=== PATIENT | male | born 1985 | race Hispanic/Latino ===

== ENCOUNTER 2024-08-07 12:05 | Emergency (ER) | payer MEDICARE ==
[~2024-08-07] VITALS: Ht 188 cm; Wt 104.3 kg
--- NOTE | 2024-08-07 12:10 | ERN ---
ED Note History of Present Illness Stated Complaint: LEFT FOOT PAIN Chief Complaint: Lower Extremity Pain/Injury Time Seen by MD: 12:05 Dictation: PATIENT IS A 38-YEAR-OLD MALE WHO ARRIVES TO EMERGENCY ROOM VIA EMS WITH COMPLAINTS OF NUMBNESS TINGLING AND PAIN FROM THE LEFT KNEE DOWN TO THE FOOT ONSET 0 200 THIS MORNING. STATES HE CAN NOT WIGGLE HIS TOES HOWEVER HE IS ABLE TO ROTATE HIS LEG. FOOT IS WARM TO TOUCH THERE IS NO ERYTHEMA PULSES ARE DIMINISHED PALPABLE DISTALLY. NO CALF PAIN TENDERNESS. NO SWELLING Allergies: Coded Allergies: No Known Drug Allergies (Unverified Allergy, Unknown, 08/07/24) Past Medical History RN Note Reviewed/Agreed w/PFSH: Yes Review of System Dictation CONSTITUTIONAL: NEGATIVE EXCEPT FOR HPI HEAD/FACE: NEGATIVE EXCEPT FOR HPI EENT: NEGATIVE EXCEPT FOR HPI RESPIRATORY: NEGATIVE EXCEPT FOR HPI GASTROINTESTINAL/ABDOMINAL: NEGATIVE EXCEPT FOR HPI GENITOURINARY: NEGATIVE EXCEPT FOR HPI MUSCULOSKELETAL: NEGATIVE EXCEPT FOR HPI INTEGUMENTARY: NEGATIVE EXCEPT FOR HPI LEFT LEG PAIN FROM KNEE DOWN WITH NUMBNESS TINGLING NEUROLOGICAL/PSYCH: NEGATIVE EXCEPT FOR HPI HEMATOLOGIC/LYMPHATIC: NEGATIVE EXCEPT FOR HPI ALL SYSTEMS NEGATIVE, EXCEPT NOTED ABOVE. 13 POINT REVIEW OF SYSTEMS ASSESSED AND ALL NEGATIVE EXCEPT FOR ABOVE. Initial Vital Sign VS Vital Signs Date Time Temp Pulse Resp B/P (MAP) Pulse Ox O2 Delivery O2 Flow Rate FiO2 08/07/24 12:08 97.9 59 16 148/89 99 Room Air 0 Physical Exam Dictation VITAL SIGNS REVIEWED GENERAL APPEARANCE: ALERT, ORIENTED X 3, NO ACUTE DISTRESS, WELL DEVELOPED, NOURISHED. HEAD AND FACE: NON-TRAUMATIC. EYES: PERRL, PINK CONJUNCTIVAS, EYELID NO TRAUMA, ANTERIOR CHAMBER WITH ARCUS SENILIS. EARS: PINNAS INTACT AND NO SIGNS OF TRAUMA OR ERYTHEMA EAR CANALS CLEAR AND NO DISCHARGE TM NO ERYTHEMA NOSE: NO DISCHARGE, NO BLEEDING. OROPHARYNX: MOUTH NORMAL, TONGUE PINK, PHARYNX CLEAR,NO ERYTHEMA, TONSILS NO EXUDATES, NO ABSCESSES NOTED, MUCOUS MEMBRANE MOIST NECK: SUPPLE, NON-TENDER, NO THYROMEGALY, NO MASSES, NO JVD, NO BRUITS BREAST:DEFERRED CHEST:NO TENDERNESS, NO CREPITUS, NO PARADOXICAL MOVEMENT, NO RETRACTIONS LUNGS:CLEAR, WELL-VENTILATED, SYMMETRIC, NO RALES, NO WHEEZING, NO RHONCHI, NO STRIDOR, GOOD BREATH SOUNDS BILATERALLY HEART: REGULAR RATE, REGULAR RHYTHM, NO MURMUR, NO GALLOPS VASCULAR: NO PERIPHERAL EDEMA, ABDOMEN: SOFT, POSITIVE BOWEL SOUNDS, NONDISTENDED, NO GUARDING, NONTENDER, NO REBOUND, NO MASSES NO HEPATOMEGALY, NO SPLENOMEGALY, NO BIGGS'S SIGN, NO HERNIAS. RECTAL: DEFERRED GENITAL: DEFERRED NEUROLOGICAL: NORMAL SPEECH, MOTOR FUNCTION INTACT, SENSORY FUNCTION INTACT MUSCULOSKELETAL: NECK NONTENDER, FULL RANGE OF MOTION, BACK NONTENDER, FULL RANGE OF MOTION, EXTREMITIES: PAIN TENDERNESS FROM KNEE DOWN LEFT. NO CALF SWELLING OR TEN DERNESS. NO ERYTHEMA AND SKIN IS INTACT. SKIN: COLOR PINK, DRY, NO TURGOR, NO RASH, NO LACERATIONS, NO ABRASIONS, NO CONTUSIONS. LYMPHATIC: DEFERRED Results (Laboratory/Radiology) Laboratory/Radiology Laboratory Tests Test 08/07/24 12:15 White Blood Count 9.4 K/uL (4.8-10.8) Red Blood Count 4.76 MIL/uL (4.50-6.20) Hemoglobin 14.1 g/dL (14.0-18.0) Hematocrit 41.2 % (42-54) L Mean Corpuscular Volume 86.6 fL (79-99) Mean Corpuscular Hemoglobin 29.6 pg (27.0-33.0) Mean Corpuscular Hemoglobin Concent 34.2 g/dL (32.0-36.0) Red Cell Distribution Width 13.1 % (11.0-15.5) Platelet Count 144 K/uL (130-400) Mean Platelet Volume 11.4 fL (7.5-10.5) H Immature Granulocyte % (Auto) 0.4 % (0-1) Neutrophils (%) (Auto) 52.5 % (40.0-77.0) Lymphocytes (%) (Auto) 31.8 % (21.0-51.0) Monocytes (%) (Auto) 10.6 % (3.0-13.0) Eosinophils (%) (Auto) 3.8 % (0.0-8.0) Basophils (%) (Auto) 0.9 % (0.0-5.0) Neutrophils # (Auto) 4.9 K/uL (1.8-7.7) Lymphocytes # (Auto) 3.0 K/uL (1.0-4.8) Monocytes # (Auto) 1.0 K/uL (0.1-1.0) Eosinophils # (Auto) 0.36 K/uL (0.00-0.70) Basophils # (Auto) 0.08 K/uL (0.00-0.20) Absolute Immature Granulocyte (auto 0.04 K/uL (0-1) Nucleated Red Blood Cells 0.0 % (0.0-0.19) Sodium Level 138 mmol/L (136-145) Potassium Level 3.8 mmol/L (3.5-5.1) Chloride Level 102 mmol/L (101-111) Carbon Dioxide Level 29 mmol/L (21-32) Blood Urea Nitrogen 17 mg/dL (7-18) Creatinine 0.9 mg/dL (0.5-1.3) Glomerular Filtration Rate Calc 112 mL/min (>90) Random Glucose 116 mg/dL (70-105) H Total Calcium 9.1 mg/dL (8.5-10.1) 1345/ARTERIAL DOPPLER STUDY LEFT LEG DEMONSTRATES TRIPHASIC FLOW TO KNEE, MONOPHASIC FLOW POSTERIOR TIB TIBIA DORSALIS Labs Reviewed?: Yes ED Course ED Course Orders Procedure Category Date Status Time Us Arterial Unila Low US 08/07/24 Taken Ext Dupl 12:06 Cbc With Differential LAB 08/07/24 Complete 12:06 Basic Metabolic Panel LAB 08/07/24 Complete 12:06 Ketorolac 60mg/2ml PHA 08/07/24 Complete (Toradol 60mg/2ml) 13:30 Acetaminophen With PHA 08/07/24 Complete Codeine (Tylenol-Code 13:30 Current Medications Medications (Trade) Dose Ordered Sig/Yunior Route PRN Reason Start Time Stop Time Status Last Admin Dose Admin Acetaminophen/ Codeine Phosphate (TYLenol-coDEINE TAB) 2 tab ONCE ONCE PO 08/07/24 13:30 08/07/24 13:31 DC 08/07/24 13:44 Ketorolac Tromethamine (toRADol 60MG/ 2ML) 60 mg ONCE ONCE IM 08/07/24 13:30 08/07/24 13:31 DC 08/07/24 13:44 Vital Signs Date Time Temp Pulse Resp B/P (MAP) Pulse Ox O2 Delivery O2 Flow Rate FiO2 08/07/24 12:08 97.9 59 16 148/89 99 Room Air 0 1345/PATIENT STATES PAIN MARKEDLY IMPROVED AFTER TREATMENT. DISCHARGED HOME WITH MUSCULOSKELETAL PAIN LEFT LEG AND PAD. Medical Decision Making MDM MDM: DIFFERENTIAL DIAGNOSIS: SEVERE OCCLUSIVE DISEASE/ELECTROLYTE IMBALANCE/DEHYDRATION/NEUROPATHY/UNCONTROLLED DIABETES/ELECTROLYTE IMBALANCE RATIONALE: TESTS CONSIDERED AND ORDERED SECONDARY TO SHARED DECISION MAKING INCLUDE: RADIOLOGY/LABS PREVIOUS OUTSIDE RECORDS REVIEWED: OLD ER VISITS. RISK OF COMPLICATION AND/OR MORBIDITY OR MORTALITY OF PATIENT MANAGEMENT: NONE MEDICATIONS-PER MEDICATION RECONCILIATION NEED FOR HOSPITALIZATION: PATIENT DOES NOT MEET CRITERIA FOR HOSPITALIZATION. NO NEED FOR EMERGENCY MAJOR/MINOR SURGERY: NO THERE ARE NO SOCIAL CONCERNS WITH THIS PATIENT. PRESCRIPTION DRUG MANAGEMENT PAIN MANAGEMENT, REFERRED TO DR. JAMISON/CARDIOLOGY'S PRESCRIPTIONS WILL INCLUDE SYMPTOMATIC CARE PATIENT'S PRIOR EXTERNAL MEDICAL RECORDS FROM OTHER ER VISITS WERE REVIEWED BY ME INDICATED. PRIOR TESTING AND RESULTS FROM PREVIOUS VISITS WERE REVIEWED. PRIOR TESTS WERE TAKEN INTO ACCOUNT WITH MEDICAL DECISION MAKING AND RESOURCE UTILIZATION, INDEPENDENT HISTORIAN/HISTORIANS WERE USED TO OBTAIN COMPLETE MEDICAL HISTORY. I INDEPENDENTLY INTERPRETED THE TEST THAT WERE PERFORMED, RESULTS WERE REVIEWED BY ME AND CONSIDERED FINDINGS ON RADIOLOGY IF ORDERED. MEDICAL MANAGEMENT AND EXAMINATION INTERPRETATION DISCUSSIONS WERE HAD BY ME WITH OTHER QUALIFIED HEALTHCARE PROFESSIONALS INDICATED FOR THE PATIENT'S CARE. DX & DISP Disposition: Discharge Departure Impression: Primary Impression: Pain in left lower leg Additional Impression: Peripheral arterial disease Condition: Stable Scripts Acetaminophen with Codeine (Acetaminophen-Cod #3 Tablet) 300 Mg-30 Mg Tablet 1 TAB PO Q4H PRN for MODERATE TO SEVERE PAIN, #12 TAB 0 Refills Prov: HECTOR EARLY MANUFACTURING ADVISOR 08/07/24 Additional Instructions: Follow-up with primary care provider in 1 to 2 days. Take medications as directed here in the emergency room. Okay to continue home medications unless otherwise discussed during your visit in the emergency room today. Return to your nearest emergency room if symptoms worsen or if there is no improvement. Call 911 if you need immediate assistance. Take Tylenol or Motrin over -the-counter as needed and if no contraindications are present. Increase oral hydration. A wound culture or urine culture was ordered here in the emergency room department please follow-up with primary care provider and advise them to get repeat ports from our facility. If you had any Jeffery wrap/splints that were applied here, please do not remove them until you see your primary care or specialty. Diet and activity as tolerated., call ship mate's for appointment in the next 1-2 days for follow up on your peripheral arterial disease if her lower extremities. Referrals: SELF,REFERRAL (PCP) MITRA ARROYO MD Time of Disposition: 13:48 I have reviewed the case, and I agree with, Diagnosis and Plan HECTOR EARLY NP Aug 07, 2024 12:10
[2024-08-07 12:25] LABS: BASOPHILS # (AUTO) 0.08 K/uL (0.00-0.20); BASOPHILS % (AUTO) 0.9 % (0.0-5.0); EOSINOPHILS # (AUTO) 0.36 K/uL (0.00-0.70); EOSINOPHILS % (AUTO) 3.8 % (0.0-8.0); HEMATOCRIT 41.2 % (42-54); IMMATURE GRANULOCYTE ABSOLUTE 0.04 K/uL (0-1); LYMPHOCYTES % (AUTO) 31.8 % (21.0-51.0); MEAN CORPUSCULAR HEMOGLOBIN 29.6 pg (27.0-33.0); MEAN CORPUSCULAR HGB CONC 34.2 g/dL (32.0-36.0); MEAN CORPUSCULAR VOLUME 86.6 fL (79-99); MONOCYTES % (AUTO) 10.6 % (3.0-13.0); NEUTROPHILS # (AUTO) 4.9 K/uL (1.8-7.7); NEUTROPHILS % (AUTO) 52.5 % (40.0-77.0); PLATELET COUNT (AUTO) 144 K/uL (130-400); RED BLOOD CELL COUNT(AUTO) 4.76 MIL/uL (4.50-6.20); RED CELL DISTRIBUTION WIDTH 13.1 % (11.0-15.5); WHITE BLOOD COUNT (AUTO) 9.4 K/uL (4.8-10.8)
[2024-08-07 12:33] LABS: CREATININE 0.9 mg/dL (0.5-1.3); POTASSIUM 3.8 mmol/L (3.5-5.1)
[2024-08-07] MEDS: ketOROlac 60 MG VIAL (30MG/ML) IM ONE (13:44)
[2024-08-07] MEDS: acetaMINOPHEN WITH coDEINE 1 TAB TAB PO ONE (13:44)
[2024-08-07] MEDS ORDERED: ACET-2079 PO (13:49)
--- NOTE | 2024-08-07 13:51 | HMCIMG ---
US ARTERIAL UNILA LOW EXT DUPL HISTORY: Left lower abdominal pain COMPARISON: None TECHNIQUE: Left lower extremity arterial Doppler ultrasound study was performed. FINDINGS: Normal triphasic arterial waveforms are noted in the left common femoral, deep femoral, superficial femoral, popliteal arteries. Abnormal monophasic arterial waveforms are seen in the left anterior tibial, posterior tibial and dorsalis pedal arteries with hyperemic flow. On the left, the peak systolic velocity of the common femoral artery is 136 cm/s, the proximal femoral artery is 137 cm/s, the mid femoral artery is 136 cm/s, the distal femoral artery is 125 cm/s, the proximal popliteal artery is 67 cm/s, the distal popliteal artery is 96 cm/s, the anterior tibial artery is 86 cm/s, the posterior tibial artery artery is 100 cm/s, and the dorsalis pedal artery is 83 cm/s. IMPRESSION: 1. Atherosclerotic disease. 2. Abnormal monophasic arterial waveforms are seen in the left anterior tibial, posterior tibial and dorsalis pedal arteries.
[2024-08-07 14:16] VITALS: BP 141/79; PULSE 59; RESP 16; TEMP 97.9; O2SAT 99
== END 2024-08-07 14:23 | disposition home or self-care (01) ==
LOC: EDH 12:05
DX: M79.662 Pain in left lower leg (principal); I73.9 Peripheral vascular disease, unspecified
CPT/HCPCS: 99285; 93926; 80048; 85025; 36415; 96372; J1885